=== PATIENT | female | born 1975 | race Two or more races ===

== ENCOUNTER 2017-03-14 05:49 | Day surgery (SDC) | payer MEDICAID ==
[2017-03-12 12:28] VITALS: BMI 37.5
[~2017-03-14] VITALS: Ht 157.5 cm; Wt 89.0 kg
[2017-03-14] VITALS (11 sets, daily range): BP systolic 100–125; BP diastolic 61–79; PULSE 53–85; RESP 14–18; Ht 157.5 cm; Wt 89.0 kg
[~2017-03-14 05:49] MED LIST: LACTATED RINGER'S 1,000 ML IV SCH
[2017-03-14 06:36] LABS: ADD SCAN DIFF NO
[2017-03-14 06:37] LABS: BASOPHILS % 0.6 % (0.0-2.0); EOSINOPHILS # 0.1 10^3/ul (0.0-0.5); EOSINOPHILS % 1.9 % (0.0-7.0); HEMATOCRIT 38.1 % (37.0-47.0); HEMOGLOBIN 12.1 g/dl (12.0-16.0); LYMPHOCYTES # 2.5 10^3/ul (0.8-2.9); LYMPHOCYTES % 36.6 % (15.0-51.0); MEAN CORPUSCULAR HEMOGLOBIN 26.9 pg (29.0-33.0); MEAN CORPUSCULAR HGB CONC 31.8 g/dl (32.0-37.0); MEAN CORPUSCULAR VOLUME 84.7 fl (82.0-101.0); MEAN PLATELET VOLUME 12.3 fl (7.4-10.4); MONOCYTE # 0.6 10^3/ul (0.3-0.9); NEUTROPHIL # 3.5 10^3/ul (1.6-7.5); NEUTROPHILS % 51.6 % (39.0-77.0); PLATELET COUNT 187 10^3/UL (140-415); RED CELL DISTRIBUTION WIDTH 13.6 % (11.5-14.5); WHITE BLOOD COUNT 6.8 10^3/ul (4.8-10.8)
[2017-03-14] MEDS ORDERED: SUCCINYLCHOLINE CHLORIDE 100 MG/5 ML SYG IV ONE (07:00)
[2017-03-14] MEDS ORDERED: FENTAnyl 50 MCG/ML VIAL ONE (07:29)
[2017-03-14] MEDS ORDERED: PROPOFOL 20 ML ONE (07:29)
[2017-03-14] MEDS ORDERED: MIDAZOLAM 1 MG/ML 2 ML INJ ONE (07:29)
[2017-03-14] MEDS ORDERED: ONDANSETRON 4 MG INJ IV PRN (08:00)
[2017-03-14] MEDS ORDERED: OXYCODONE/ACETAMINOPHEN (5/325) TAB PO PRN ×2 (08:00)
[2017-03-14] MEDS ORDERED: MEPERIDINE 25 MG INJ IV PRN (08:00)
[2017-03-14] MEDS ORDERED: METOCLOPRAMIDE 10 MG INJ IV PRN (08:00)
[2017-03-14] MEDS ORDERED: FENTAnyl 50 MCG/ML VIAL IV PRN ×3 (08:00)
[2017-03-14] MEDS ORDERED: DIPHENHYDRAMINE 50 MG INJ IV PRN (08:00)
--- NOTE | 2017-03-15 18:29 | OPR ---
Operative Report Planned Procedure Free Text/Dictation DATE OF OPERATION: 03/14/2017 PREOPERATIVE DIAGNOSIS: Retained IUD POSTOPERATIVE DIAGNOSIS: Same OPERATION PERFORMED: Hysteroscopic IUD removal SURGEON: Mustapha Gauthier MD. ROUGH PATCHER: None. FINDINGS: Hyesterocopic view: IUD postition in lower uerine segment of the endometrium ESTIMATED BLOOD LOSS: Minimal. SPECIMEN: IUD COMPLICATIONS OF PROCEDURE: None. TYPE OF ANESTHESIA: General. DESCRIPTION OF PROCEDURE: After explaining the risks, benefits and alternatives , the patient and consent signed in chart, the patient was taken to the operating room where general anesthesia was obtained without difficulty. The patient was then examined under anesthesia and found to have a small anteverted uterus with normal adnexa. She was then placed in dorsal lithotomy position and prepared and draped in normal sterile fashion. A heavy weighted speculum was then placed in the patient's vagina and the anterior lip of the cervix was grasped with a single tooth tenaculum. A hysteroscope was then entered into the uterine cavity and findings noted above. A alligator forceps was used and grasped the IUD string pulled out via endocervical canal. The procedure was completed. All instruments were removed from the patient's vagina. The patient tolerated procedure well. All counts were correct x2. Dictated By: MUSTAPHA GAUTHIER MD Procedure date Mar 14, 2017 Procedure Description Under satisfactory [] anesthesia, the patient was prepped and draped and placed in a supine position, tilted to the left. Pfannenstiel incision was made, carried through the subcutaneous tissue. Bleeders brought under control with electrocautery. Fascia incised to the length of the incision. Rectus muscles from the fascia, divided midline. Peritoneum exposed, entered through a transverse incision. Exploration of abdomen revealed gravid uterus. Bladder flap was developed. Transverse incision was made in the lower segment of the uterus. Amniotic sac ruptured. [] amniotic fluid noted. [] Nasal oropharyngeal suction was performed. The baby was handed to the team for immediate attention. The placenta was delivered manually intact. Uterine cavity was cleaned with wet sponge and drainage established. Uterus closed in 2 layers using [] in continuous fashion. Peritoneal cavity irrigated with warm saline. Sponge, needle and instrument count reported to be correct. Abdominal peritoneum closed with [] continuously. Rectus muscle approximated with []. Fascia closed with [], and skin closed with tanya. Estimated blood loss []mL. Urine bag contained []mL of urine Post-Procedure Findings: Live Baby [], Apgars [] and [], weight [], position [], [] presentation []cord. Physician Certification I, the undersigned physician, hereby certify that I have discussed the procedure described in this consent form with this patient (or the patient's legal strategic partnership representative), including: * The risk and benefits of the procedure; * Any adverse reactions that may reasonably be expected to occur; * Any alternative efficacious methods of treatment which may be medically viable ; * The potential problems that may occur during recuperation; * Potential for blood transfusion and associated risks/benefits; and * Any research or economic interest I may have regarding this treatment. I further certify that the patient/legally responsible person was encouraged to ask question and that all questions were answered. MUSTAPHA GAUTHIER MD Mar 15, 2017 18:28
== END 2017-03-14 10:40 | disposition home or self-care (01) ==
LOC: SDS 05:49
PROVIDERS: ATTEND Obstetrics & Gynecology
DX: Z30.432 Encounter for removal of intrauterine contraceptive device (principal)
CPT/HCPCS: 58579; 85025; 86850; 86900; 86901; 88300; J2250; J3010; J7999; Z7512; Z7610